=== PATIENT | male | born 1955 | race Caucasian/White ===

== ENCOUNTER 2020-03-13 07:01 | Outpatient (NON) | payer MEDICARE, SELFPAY ==
[2020-03-13 19:17] LABS: SARS-CoV-2 RNA PCR Negative
== END 2020-03-13 07:02 ==
PROVIDERS: PCP Family Medicine; Visit Provider Physician Assistant
DX: R09.81 Nasal congestion (principal); Z20.822 Contact with and (suspected) exposure to COVID-19
CPT/HCPCS: C9803; U0003; U0005

== ENCOUNTER → 2020-05-05 08:14 | Outpatient (CLI) | payer MEDICARE, SELFPAY ==
--- NOTE | ~2020-05-05 | CT_ITS ---
EXAMINATION: CT diagnostic chest wo con DATE: 05/05/2020 08:30 INDICATION: Screening for malignancy TECHNIQUE: Computed tomography (CT) of the chest was performed without intravenous contrast. Automate d exposure control and iterative reconstruction technique were employed. Exam dose: 327.80 mGy-cm to regina exam DLP. COMPARISON: 05/14/[address] lung cancer screening FINDINGS: There is stable mild emphysematous changes of the lungs. There is stable bilateral apical scarring and mild bilateral pleural thickening without calcification . No interval pulmonary mass lesion. Mild discoid atelectasis or scarring at the posterior right lung b ase, right lower lobe. There is old pulmonary granulomatous disease including calcified left lower lo be pulmonary granuloma and calcified left hilar and mediastinal nodes. Normal heart size. No pericardial or pleural effusion. No hilar or mediastinal mass lesion or lymphad enopathy is evident. Small sliding hiatal hernia. Normal morphology of the adrenal glands. Degenerative spurring of the thoracic and lumbar spine; no suspicious osteolytic or osteoblastic lesi ons are noted. IMPRESSION: Lung BI-RADS Category 2, benign in appearance or behavior Recommendation: LDCT screening in one year Reviewed, dictated and finalized at [facility]. Reviewed, dictated and finalized at location B.
== END ==
PROVIDERS: PCP Family Medicine; Visit Provider Family Medicine
DX: Z12.2 Encounter for screening for malignant neoplasm of respiratory organs (principal)
CPT/HCPCS: 71250

== ENCOUNTER 2022-01-19 09:23 | Outpatient (CLI) | payer MEDICARE, SELFPAY ==
[2022-01-22 14:37] LABS: PSA, Free 1.54 ng/mL; PSA, Total 10.6 ng/mL (<=4.0)
== END 2022-01-19 09:24 | disposition home or self-care (01) ==
LOC: ANHGOSHLAB 09:26
PROVIDERS: PCP Emergency Medicine; Visit Provider Emergency Medicine
DX: R97.20 Elevated prostate specific antigen [PSA] (principal)
CPT/HCPCS: 36415; 84153; 84154

== ENCOUNTER → 2022-01-25 08:02 | Outpatient (CLI) | payer MEDICARE, SELFPAY ==
--- NOTE | ~2022-01-25 | CT_ITS ---
EXAMINATION:CT lung screening DATE: 01/25/2022 08:16 INDICATION: Personal history of tobacco dependence. Current smoker with 20 pack-year history. TECHNIQUE: Computed tomography (CT) of the chest was performed without intravenous contrast. Automate d exposure control and iterative reconstruction technique were employed. The dose-length product (DLP ) was 103.63 mGy-cm. COMPARISON: Chest CT 05/05/2020 FINDINGS: There is mild emphysema. There is chronic scarring at the lung apices. There is minimal ate lectasis in the inferior lungs. There is a 2 mm nodule in right middle lobe. A calcified left lung no dule and calcified left hilar and mediastinal lymph nodes are consistent with old granulomatous disea se. No pleural effusion. The heart size is normal. There are coronary artery calcifications. No peric ardial effusion. Partially visualized is a 2.8 cm cyst in right kidney. There is severe thoracic spon dylosis. There is chronic mild anterior wedging of multiple midthoracic vertebral bodies. IMPRESSION: 1. Lung-RADS category 2: Benign appearance or behavior. Continue annual screening with noncontrast lo w-dose chest CT in 12 months. Reviewed, dictated and finalized at location A. ENDOSCOPY IMPRESSION: 1. Lung-RADS category 2: Benign appearance or behavior. Continue annual screeni ng with noncontrast low-dose chest CT in 12 months.
== END ==
PROVIDERS: PCP Emergency Medicine; Visit Provider Emergency Medicine
DX: Z12.2 Encounter for screening for malignant neoplasm of respiratory organs (principal); Z87.891 Personal history of nicotine dependence
CPT/HCPCS: 71271

== ENCOUNTER 2022-03-14 06:23 | Day surgery (SDC) | payer MEDICARE, SELFPAY ==
[2022-01-14 14:57] VITALS: BMI 23.7
[2022-03-04 10:51] VITALS: BMI 24.9
--- NOTE | 2022-03-14 07:04 | P.PNAN_ITS ---
Anes - Initial Pre Proc Eval Procedure: Operation Date: 03/14/22 08:00 Proposed Procedures p Screening Colonoscopy - Preston Silver MD Date/Time: 03/14/22 07:04 Surgeon: Preston Silver MD Pre Op Diagnosis: Neoplasm screening Patient Data Age: 67 Gender: M Height: 1.91 m Weight: 87.7 kg Allergies Allergy/AdvReac Type Severity Reaction Status Date / Time Penicillins Allergy Mild RASH Verified 03/14/22 06:50 Home Medications Medication Instructions Recorded Confirmed Type sodium,potassium,mag sulfates 17.5 See Rx Instructions PO .COMPLEX 01/14/22 03/14/22 Rx gram-3.13 gram-1.6 gram oral soln #354 mL (Suprep Bowel Prep Kit) sildenafil 25 mg tablet 25 mg PO PRN PRN Erectile 03/04/22 03/14/22 History Dysfunction Patient hx anesthesia problems: none Family hx anesthesia problems: none Results Review: All pre-operative results and documents have been reviewed as part of the pre- operative evaluation. [facility] Family History Family History Mother Family history of osteoarthritis Social History Social History (Updated 03/14/22 @ 07:39 by Maurilio Zamarripa DO) Smoking status: Current some day smoker Tobacco type: cigarettes Additional smoking assessment comments: 0.5 PPD x 50 years Alcohol intake: current Alcohol use details: 1-2 drinks/day Substance use: never Substance use type: does not use Living arrangements: with family Spiritual care concerns: No Anes - Eval Final PreProcedure Day of Procedure 03/14/22 07:04 Patient weight: normal Heart: regular rate and rhythm Lungs: clear to auscultation and normal air movement Airway: Mallampati scale class II Neurological: alert and oriented Last oral intake: >/= 8 hours ASA classification: III Emergent: no Anesthetic plan: proceed Anesthesia type and monitoring: general GIVS and standard monitoring Results Review: All pre-operative results and documents have been reviewed as part of the pre- operative evaluation. Informed Consent: The patient's anesthetic plan and its attendant risks and benefits were discussed with the patient/family/POA. Questions were solicited and answers provided to the satisfaction of the patient/family/POA.
[2022-03-14] MEDS: LACTATED RINGERS 1,000 ML 150 ML IV CONT (07:17)
[2022-03-14 07:18] VITALS: BP 136/83; PULSE 74; RESP 18; TEMP 37.1; O2SAT 99
--- NOTE | 2022-03-14 07:30 | PM.HPGS ---
History of Present Illness History of Present Illness Consent: Risks, benefits, and alternatives have been discussed and questions answered. Patient agrees to proceed with procedure. Chief complaint: Neoplasm screening Narrative: Victor Hugo Whitaker is a 67 year old male Presents for screening colonoscopy. Patient's current weight appetite and bowel movements are normal. Patient denies abdominal pain. Patient has had no bleeding. Family history noncontributory. Currently undergoing workup for elevated PSA. Review of Systems Review of Systems: Review of systems noncontributory. [facility] Family History Family History Mother Family history of osteoarthritis Social History Social History Smoking status: Current some day smoker Tobacco type: cigarettes Alcohol intake: current Substance use: never Substance use type: does not use Living arrangements: with family Spiritual care concerns: No Meds Home Medications and Allergies Home Medications Medication Instructions Recorded Confirmed Type sodium,potassium,mag sulfates 17.5 See Rx Instructions PO .COMPLEX 01/14/22 03/14/22 Rx gram-3.13 gram-1.6 gram oral soln #354 mL (Suprep Bowel Prep Kit) sildenafil 25 mg tablet 25 mg PO PRN PRN Erectile 03/04/22 03/14/22 History Dysfunction Allergies Allergy/AdvReac Type Severity Reaction Status Date / Time Penicillins Allergy Mild RASH Verified 03/14/22 06:50 Vital Signs Vital Signs - 24 hr 03/14/22 07:18 Temperature 98.7 F Pulse Rate 74 Respiratory Rate 18 Blood Pressure 136/83 Pulse Oximetry 99 Oxygen Delivery Room Air Exam Narrative: Physical exam reveals patient to be alert. Vital signs stable. HEENT exam is unremarkable. Patient is anicteric. Lungs are clear to auscultation and percussion. Heart is without murmur or extra sounds. Abdomen bowel sounds are present soft nontender with no organomegaly. Digital external rectal exam is normal. Assessment and Plan Assessment and plan (1) Encounter for screening colonoscopy: Code(s): Z12.11 - Encounter for screening for malignant neoplasm of colon Status: Acute Assessment and Plan: Patient presents for screening colonoscopy. He appears to be at average risk for colon polyps. Further recommendations may be given after endoscopy.
[2022-03-14 08:25] VITALS: BP 113/72; PULSE 78; RESP 18; O2SAT 100
[2022-03-14 08:35] VITALS: BP 101/73; PULSE 72; RESP 18; O2SAT 100
[2022-03-14 08:45] VITALS: BP 120/83; PULSE 71; RESP 17; O2SAT 99
--- NOTE | 2022-03-14 09:41 | WPDANESPN ---
Anes - Prog Note Post-Op Date/Time: 03/14/22 09:41 Cardiovascular status: normal Respiratory status: normal Airway patency: baseline Mental status: baseline Post-Op hydration status: normal Vital Signs: Last Vital Signs Temp 37.1 C 03/14/22 07:18 Pulse 71 03/14/22 08:45 Resp 17 03/14/22 08:45 BP 120/83 03/14/22 08:45 Pulse Ox 99 03/14/22 08:45 O2 Del Method Room Air 03/14/22 08:45 Pain Score (VAS): 0 I/O: Intake & Output 03/13/22 03/14/22 03/14/22 23:59 07:59 15:59 Intake Total 300 Balance 300 Post-procedural complaints: none Patient Feedback: Patient satisfied with anesthetic care. Other Findings: Patient vital signs back to baseline. Patient denies nausea and vomiting. Patient's pain under control. Patient OK for discharge.
== END 2022-03-14 09:03 | disposition home or self-care (01) ==
PROVIDERS: PCP Emergency Medicine; Visit Provider Internal Medicine Gastroenterology
PROC: 0DJD8ZZ Inspection of Lower Intestinal Tract, Via Natural or Artificial Opening Endoscopic (ICD-10-PCS; CPT 45378; principal; 2022-03-14 08:00)
DX: Z12.11 Encounter for screening for malignant neoplasm of colon (principal)
CPT/HCPCS: 45385

== ENCOUNTER 2022-03-14 08:09 | Outpatient (NON) | payer MEDICARE, SELFPAY | END 2022-03-14 08:10 | disposition home or self-care (01) | LOC: ANHLAB 03-15 08:11 | PROVIDERS: PCP Emergency Medicine; Visit Provider Internal Medicine Gastroenterology | DX: Z12.11 Encounter for screening for malignant neoplasm of colon (principal) | CPT/HCPCS: 88305 ==

== ENCOUNTER 2022-04-19 08:01 | Outpatient (CLI) | payer MEDICARE, SELFPAY ==
--- NOTE | ~2022-04-19 | NM_ITS ---
EXAMINATION: NM bone scan whole body DATE: 04/19/2022 11:51 INDICATION: Malignant neoplasm of the prostate TECHNIQUE: 85.7 mCi Tc-99m HDP was administered intravenously. Delayed whole-body scintigrams were o btained. COMPARISON: Chest CT studies dated 01/25/2022 and 08/31/2016 FINDINGS: Typical pattern of mild likely degenerative joint centered uptake at the right knee, bilateral acromi oclavicular, sternoclavicular and elbow joints and at the right hand and left midfoot. There is a sma ll focus of mild increased uptake at the left side of the T10 vertebral body corresponding to a new s mall sclerotic lesion on CT suspicious for metastatic disease. Additional small focus of suspicious m ild increased uptake projecting over the central sacrum. Slightly heterogeneous pattern of uptake britney ng the ribs but without evident corresponding lytic or blastic lesions on CT. Typical location for li lula degenerative mild to moderate increased uptake bilaterally at the lower cervical facet joints an d at the left side of L5 along the L4-L5 disc space although no other imaging of this region is avail able for comparison. IMPRESSION: 1. Suspicious foci of increased uptake at the T10 vertebral body and at the central sacrum, the forme r with corresponding sclerotic lesion on prior CT suspicious for metastatic disease. Reviewed, dictated and finalized at location A. [employer] IMPRESSION: 1. Suspicious foci of increased uptake at the T10 vertebral body and at the joe tral sacrum, the former with corresponding sclerotic lesion on prior CT suspici ous for metastatic disease.
== END 2022-04-19 08:02 | disposition home or self-care (01) ==
PROVIDERS: PCP Emergency Medicine; Visit Provider Urology
DX: C61 Malignant neoplasm of prostate (principal)
CPT/HCPCS: 78306; A9503

== ENCOUNTER 2022-05-04 12:43 | Outpatient (CLI) | payer MEDICARE, SELFPAY ==
--- NOTE | ~2022-05-04 | PE_ITS ---
EXAMINATION: PET_PETPSMAST_PT DATE: 05/04/2022 15:32 INDICATION: Malignant neoplasm of the prostate TECHNIQUE: 8.993 mCi of pipflufolastat F-18 (18-F-DCFPyL) was administered i.v. Low dose computed to mography (CT) images were acquired from the base of the brain to the base of the brain to the proxima l thighs for attenuation correction and anatomic localization. Positron emission tomography (PET) nicol ges were acquired in the same distribution beginning minutes after injection. Images including fused PET/CT images were reconstructed in axial, coronal, and sagittal planes. Automated exposure control t [employer] was employed. The dose-length product was 709.52mGy-cm. COMPARISON: None FINDINGS: Head/neck: Typical pattern of symmetric physiologic increased activity in the lacrimal, parotid and submandibula r glands as well as along the mucosa of the nasal and oral cavities, the tete-, naso- and hypopharynx, the glottis and esophagus. No pathologically enlarged cervical lymphadenopathy or suspicious foci of increased soft tissue uptake in the visualized head or neck. Chest: Mild emphysema with biapical pleural-parenchymal scarring. Calcified left lower lobe nodule calcified left hilar and mediastinal lymph nodes consistent with old granulomatous disease. No suspicious pulm onary nodules, pneumonia, pulmonary edema or pleural effusion. Heart size is normal. Small amount of atherosclerotic coronary artery calcific lesion. No pericardial effusion. Ectatic ascending thoracic aorta measuring up to 4.1 cm in maximal diameter. No pathologically enlarged or PSMA avid thoracic ly mphadenopathy. Abdomen/pelvis/proximal thighs: Physiologic renal accumulation and excretion of activity in the kidneys, bladder and along portions o f ureters. Photopenic low-attenuation 4.8 cm cyst at the upper pole of the right kidney. Normal degre e and slightly heterogenous pattern of increased uptake throughout the liver and spleen without radio logic correlate or dominant PSMA avid lesion. The gallbladder, pancreas and bilateral adrenal glands are normal. Moderate uptake scattered throughout the bowels with typical duodenal and proximal jejuna l predominance and without radiologic correlate, also likely physiologic. There is an approximately 2 cm region of prominent increased PSMA neck activity with maximal severe 24.9 cm in the left peripher al zone of the prostate without discernible radiologic correlate but concerning for reported primary prostate cancer. No other abnormal foci of increased soft tissue uptake or pathologically enlarged ly mphadenopathy in the abdomen, pelvis or proximal thighs. Musculoskeletal: There are approximately 35-40 scattered foci of increased bone uptake, the majority with correspondin g sclerotic bone lesions consistent with metastatic prostate cancer. These include the lesions is not ed on prior bone scan at S4 with maximal SUV of 124 and at T10 with maximal SUV of 34.9. L5 spondylol ysis with bilateral pars intra-articular is defects and grade 1 anterolisthesis on S1. IMPRESSION: 1. Focus of prominent increased uptake at the left peripheral zone of the prostate consistent with pr ovided history of prostate cancer. 2. 35-40 scattered likely metastatic bone lesions scattered throughout the axial and appendicular ske leton with prominent increased uptake in many with associated sclerosis. No evident nonosseous metast atic disease. Reviewed, dictated and finalized at location A. IMPRESSION: 1. Focus of prominent increased uptake at the left peripheral zone of the prost ate consistent with provided history of prostate cancer. 2. 35-40 scattered likely metastatic bone lesions scattered throughout the axia l and appendicular skeleton with prominent increased uptake in ma
== END 2022-05-04 12:44 | disposition home or self-care (01) ==
PROVIDERS: PCP Emergency Medicine; Visit Provider Urology
DX: C61 Malignant neoplasm of prostate (principal)
CPT/HCPCS: 78815; A9595

== ENCOUNTER 2022-08-04 10:23 | Outpatient (CLI) | payer MEDICARE, SELFPAY ==
--- NOTE | ~2022-08-04 | MR_ITS ---
EXAMINATION: MR pelvis wo/w con DATE: 08/04/2022 12:11 INDICATION: Prostate cancer TECHNIQUE: Magnetic resonance imaging (MRI) of the pelvis was performed without intravenous contrast. [place] sequences of the pelvis included axial and coronal T2-weighted SS FSE, axial, sagittal and coronal 2D FIESTA, axial 2D FIESTA FS, axial SSFSE-IR LISA, axial dual-echo T1-weighted FSPGR, axial and coronal T1 weighted LAVA, 3D axial T2 Cube, axial diffusion-weighted SE with apparent diffusion c oefficient (ADC) maps. Postcontrast sequences included a time course axial T1-weighted LAVA and sagit regina and coronal T1-weighted LAVA. COMPARISON: PET/CT dated 05/04/2022 FINDINGS: 1.5 x 1.2 cm region of asymmetric increased enhancement at the left posterior margin of the prostate appears to extend into the seminal vesicle which corresponds in location to the region of increased a ctivity on prior the SMA pad consistent with likely direct extraprostatic extension of known prostate cancer. There are enhancing bone lesions at S4 and more subtly at the left innominate bone correspon ding to foci of increased PSMA activity on prior PET/CT consistent with osseous metastatic disease. T here are a few additional bone lesions evident on prior PET with corresponding focal loss of T1 fat s ignal on the axial T2 KUB and coronal LAVA sequences which remain indiscernible on the post contrast imaging. This includes at the left side of L5 with additional lesions in the right innominate bone an d in the sacrum. Osteoarthritis related degenerative subarticular cystic change at the anterosuperior right acetabulum which was without abnormally increased activity on prior PET study. There are few a dditional small lesions in the pelvis and thoracolumbar spine which are not clearly discernible on th e MR imaging. Bladder is normal. No pathologically enlarged pelvic or inguinal lymphadenopathy. IMPRESSION: 1. 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 2. Several bone lesions in the pelvis corresponding to foci of increased PSMA activity on prior PET/C T consistent with osseous metastatic disease. Reviewed, dictated and finalized at location A. IMPRESSION: 1. 1.5 x 1.2 cm asymmetric region of enhancement on the left posterior margin o f the prostate with corresponding increased activity on prior PSMA PET consiste nt with an extra prostatic invasion of the left seminal vesicle from a known pr ostate cancer. 2. Several bone lesions in the pelvis corresponding to foci of increased PSMA a ctivity on prior PET/CT consistent with osseous metastatic disease.
== END 2022-08-04 10:24 | disposition home or self-care (01) ==
PROVIDERS: PCP Emergency Medicine; Visit Provider Radiology Radiation Oncology
DX: C61 Malignant neoplasm of prostate (principal)
CPT/HCPCS: 72197; A9577

== ENCOUNTER 2022-10-06 10:03 | Outpatient (CLI) | payer MEDICARE, SELFPAY ==
[2022-10-06 17:10] LABS: Basophils Absolute Auto 0.1 K/mm3 (0.0-0.1); Basophils Percent Auto 1.1 % (0.2-1.2); Eosinophils Absolute Auto 0.2 K/mm3 (0-0.3); Eosinophils Percent Auto 2.3 % (0-4.4); Hematocrit 44.8 % (42.0-52.0); Hemoglobin 15.3 g/dL (14.0-18.0); Immature Granulocyte Absolute 0.01 K/mm3 (0.00-0.031); Immature Granulocyte Percent A 0.2 % (0-0.5); Lymphocytes Absolute Auto 2.86 K/mm3 (0.9-3.2); Lymphocytes Percent Auto 44.1 % (18.3-44.2); Mean Corpuscular HGB Conc 34.2 g/dl (32-36); Mean Corpuscular Hemoglobin 33.8 pg (26-34); Mean Corpuscular Volume 98.9 fl (80-100); Mean Platelet Volume 9.2 fl (7.4-10.4); Monocytes Absolute Auto 0.6 K/mm3 (0.1-0.6); Monocytes Percent Auto 9.9 % (2.6-8.5); Neutrophils Absolute Auto 2.8 K/mm3 (1.3-6.7); Neutrophils Percent Auto 42.4 % (45.5-73.1); Platelet Count Result 235 k/mm3 (150-375); Red Blood Count 4.53 M/mm3 (4.6-6.20); Red Cell Distribution Width 12.9 % (11.5-14.5); White Blood Count 6.5 K/mm3 (4.5-10.0)
[2022-10-06 17:14] LABS: Alanine Aminotransferase 21 U/L (6-50); Albumin Level 3.9 g/dL (3.5-5.1); Alkaline Phosphatase 47 U/L (38-126); Anion Gap 0 mmol/L (8-16); Aspartate Amino Transferase 35 U/L (17-59); Bilirubin,Total 0.9 mg/dL (0.2-1.3); Blood Urea Nitrogen 17 mg/dL (9-20); Calcium 9.1 mg/dL (8.4-10.2); Carbon Dioxide 31 mmol/L (22-30); Chloride 103 mmol/L (98-107); Cholesterol 223 mg/dL (0-200); Estimated Glomerular Filt Rate > 60; Glucose 102 mg/dL (65-110); HDL Direct 84 mg/dL; Potassium 4.5 mmol/L (3.4-5.0); Sodium 134 mmol/L (137-145); Triglycerides 63 mg/dL (<150)
[2022-10-06 17:25] LABS: LDL Cholesterol Direct 104 mg/dL
[2022-10-06 20:05] LABS: Hemoglobin A1C 5.3 % (<5.7)
== END 2022-10-06 10:04 | disposition home or self-care (01) ==
PROVIDERS: PCP Emergency Medicine; Visit Provider Emergency Medicine
DX: Z91.89 Other specified personal risk factors, not elsewhere classified (principal); C61 Malignant neoplasm of prostate
CPT/HCPCS: 36415; 80053; 80061; 83036; 85025

== ENCOUNTER 2022-10-06 13:45 | Outpatient (CLI) | payer MEDICARE, SELFPAY ==
--- NOTE | ~2022-10-06 | PE_ITS ---
EXAMINATION: PET_PETPSMAST_PT DATE: 10/06/2022 16:03 INDICATION: Prostate cancer TECHNIQUE: 8.62 mCi of pipflufolastat F-18 (18-F-DCFPyL) was administered i.v. Low dose computed amanda ography (CT) images were acquired from the base of the brain to the base of the brain to the proximal thighs for attenuation correction and anatomic localization. Positron emission tomography (PET) imag es were acquired in the same distribution beginning 101 minutes after injection. Images including fus ed PET/CT images were reconstructed in axial, coronal, and sagittal planes. Automated exposure contro l technique was employed. The dose-length product was 636.42mGy-cm. COMPARISON: 05/04/2022 FINDINGS: Head/neck: Typical pattern of symmetric physiologic increased activity in the lacrimal, parotid and submandibula r glands as well as along the mucosa of the nasal and oral cavities, the tete-, naso- and hypopharynx, the glottis and esophagus. No pathologically enlarged cervical lymphadenopathy or suspicious foci of increased uptake in the soft tissues of the visualized head or neck. Chest: Mild emphysema with stable appearance of biapical pleural-parenchymal scarring. Calcified left lower lobe nodule and calcified left hilar and mediastinal lymph nodes consistent with old granulomatous di sease. No suspicious pulmonary nodules, pneumonia or pleural effusion. Heart size is normal. No peric ardial effusion. Unchanged ectatic ascending thoracic aorta measuring up to 4.1 cm. No pathologically enlarged or PSMA avid thoracic lymphadenopathy. Abdomen/pelvis/proximal thighs: Physiologic renal accumulation and excretion of activity in the kidneys, bladder and along portions o f ureters. Again seen is a photopenic defect associated with a 4.9 cm right renal cyst. Normal degree and slightly heterogenous pattern of increased uptake throughout the liver and spleen without radiol ogic correlate or dominant PSMA avid lesion. The gallbladder, pancreas and bilateral adrenal glands a re normal. Moderate uptake scattered throughout the bowels with typical duodenal and proximal jejunal predominance and without radiologic correlate, also likely physiologic. The previously seen intense focus of uptake at the left side of the prostate has resolved consistent with response to treatment. No other abnormal foci of increased soft tissue uptake or pathologically enlarged lymphadenopathy in the abdomen, pelvis or proximal thighs. Musculoskeletal: Significant decrease in the degree of uptake associated with the numerous previously noted PSMA avid bone lesions, many of which are now indiscernible. For reference there is a 7 mm sclerotic lesion wit hout evident PSMA activity at the left glenoid where previously there was a lesion with maximal SUV o f 25.1 which was indiscernible on CT. No significant change in size of a 12 mm now more densely scler otic lesion in the T10 vertebral body with decrease in activity with maximal SUV of 4.6, previously 3 4.9. The most intense residual uptake is seen at a 12 mm sclerotic lesion at the S4 vertebral body wh ich is unchanged in size but with increasing sclerosis to prior study. The maximal SUV has decreased from 124 to 16.7. IMPRESSION: 1. Significant decrease in uptake associated with the previously noted lesion in the left prostate an d all of the previously noted bone lesions, many of which are now essentially indiscernible on PET bu t with increasing sclerosis consistent with response to treatment. No new or more intensely PSMA avid lesions identified. Reviewed, dictated and finalized at location A. IMPRESSION: 1. Significant decrease in uptake associated with the previously noted lesion i n the left prostate and all of the previously noted bone lesions, many of which are now essentially indiscernible
== END 2022-10-06 13:46 | disposition home or self-care (01) ==
PROVIDERS: PCP Emergency Medicine; Visit Provider Urology
DX: C61 Malignant neoplasm of prostate (principal)
CPT/HCPCS: 36415; 78815; 80053; 80061; 83036; 85025; A9595

== ENCOUNTER 2022-11-18 13:07 | Outpatient (CLI) | payer MEDICARE, SELFPAY ==
--- NOTE | ~2022-11-18 | DEXA_ITS ---
Bone Density Report Name: MONICA CORTES Age: 67 Sex: Male Ethnicity: White Date of : 1955 Indication: prior fracture; cancer; Referring Provider: CHAVEZ KIM Study: Bone densitometry was performed. Exam Date: November 18, 2022 Accession number: [id number] Bone Density: Region BMD T-score Z-score Classification AP Spine(L1, L2, L3) 1.329 2.4 3.2 Normal Femoral Neck (Left) 0.907 -0.2 0.9 Normal Total Hip (Left) 1.168 0.9 1.5 Normal Femoral Neck (Right) 0.870 -0.4 0.7 Normal Total Hip (Right) 1.128 0.6 1.2 Normal Total Hip Mean 1.148 0.8 1.4 Normal World Health Organization criteria for BMD impression classify patients as: Normal (T-score at or above -1.0), Osteopenia (T-score between -1.0 and -2.5), or Osteoporosis (T-score at or below -2.5). 10-year Fracture Risk: FRAX not reported because: All T-scores for Spine Total, Hip Total, Femoral Neck at or above -1.0 Clinical Information Provided by Patient: Has had a low trauma fracture Smokes Has the following medical conditions: Cancer Patient maximum height was 76 Drinks caffeinated beverages Impression: The patient has normal bone mass. The patient has risk factors, including: smoking, previous fracture. Discussion: BONE DENSITY IS ABOVE THE MINIMUM DESIRABLE LEVEL AT ALL SKELETAL SITES TESTED. This patient?s bone mineral density is above the minimum desirable level (T-score -1.0 or better) at all sites measured. The patient should follow a healthful lifestyle (good nutrition with adequate calcium and vitamin D, and appropriate weight-bearing exercise). Follow-Up: Consider repeating this study in 5 years or sooner if there is some new clinical indication. Reported by: [facility] on 11/18/2022 1:39:00 PM. Reviewed, dictated and finalized at location A. [facility]
== END 2022-11-18 13:08 | disposition home or self-care (01) ==
LOC: ANHIMG 13:09
PROVIDERS: PCP Emergency Medicine; Visit Provider Urology
DX: M81.0 Age-related osteoporosis without current pathological fracture (principal); C61 Malignant neoplasm of prostate
CPT/HCPCS: 77080

== ENCOUNTER 2023-04-26 14:15 | Outpatient (CLI) | payer MEDICARE, SELFPAY ==
[2023-04-26 19:49] LABS: Prostate Specific Antigen < 0.1 ng/mL (< OR = 4.0)
[2023-05-01 18:06] LABS: Testosterone Total 12 ng/dL (250-1100)
== END 2023-04-26 14:16 | disposition home or self-care (01) ==
LOC: ANHGOSHLAB 14:18
PROVIDERS: PCP Emergency Medicine
DX: C61 Malignant neoplasm of prostate (principal)
CPT/HCPCS: 36415; 84153; 84403

== ENCOUNTER 2023-08-23 09:07 | Outpatient (CLI) | payer MEDICARE, SELFPAY ==
[2023-08-23 14:07] LABS: Prostate Specific Antigen < 0.1 ng/mL (< OR = 4.0)
== END 2023-08-23 09:08 | disposition home or self-care (01) ==
PROVIDERS: PCP Emergency Medicine; Visit Provider Urology
DX: C61 Malignant neoplasm of prostate (principal)
CPT/HCPCS: 36415; 84153

== ENCOUNTER 2023-12-13 13:47 | Outpatient (CLI) | payer MEDICARE, SELFPAY ==
--- NOTE | ~2023-12-13 | CT_ITS ---
CT Scan of the Chest without Contrast: Clinical Indication: Lung cancer screening, nicotine dependence Technique: Contiguous sections were acquired throughout the chest without intravenous contrast. Dose reduction technique was used on this scan by utilizing automated exposure control and iterative recon struction technique. The dose-length product (DLP) was 101.76 mGy-cm. COMPARISON: 01/25/2022 Findings: There is no evidence of any significant mediastinal, hilar or axillary lymphadenopathy. The mediastin al soft tissues appear normal. There is no evidence of pleural or pericardial effusion. Stable biapical scarring. No new or enlarging pulmonary nodule seen otherwise. Calcified left basilar granuloma noted. Images through the upper abdomen reveal no significant abnormalities. Stable degenerative spondylosis of the thoracic spine. Impression: No lung RADS 2: Benign appearance. 12 month follow-up screening CT advised. Reviewed, dictated and finalized at [facility]. Impression: No lung RADS 2: Benign appearance. 12 month follow-up screening CT advised.
--- NOTE | ~2023-12-13 | US_ITS ---
EXAMINATION: US aorta [facility] DATE: 12/13/2023 14:32 INDICATION: Abdominal aortic aneurysm screening with risk factor of smoking TECHNIQUE: Grayscale, color Doppler, and pulsed Doppler images of the aorta and common iliac arteries were obtained. COMPARISON: None. FINDINGS: The proximal aorta measures 2.3 cm in AP diameter. The mid aorta measures 2.2 cm. The distal aorta me asures 1.8 cm. The right common iliac artery measures 1.3 cm. The left common iliac artery measures 1 .2 cm. IMPRESSION: 1. Normal abdominal aorta. Reviewed, dictated and finalized at location A. IMPRESSION: 1. Normal abdominal aorta.
== END 2023-12-13 13:48 | disposition home or self-care (01) ==
PROVIDERS: PCP Family Medicine; Visit Provider Emergency Medicine
DX: Z12.2 Encounter for screening for malignant neoplasm of respiratory organs (principal); Z87.891 Personal history of nicotine dependence
CPT/HCPCS: 71271; 76706

== ENCOUNTER 2024-01-04 11:11 | Outpatient (CLI) | payer MEDICARE, SELFPAY ==
[2024-01-04 18:42] LABS: Basophils Absolute Auto 0.1 K/mm3 (0.0-0.1); Basophils Percent Auto 1.4 % (0.2-1.2); Eosinophils Absolute Auto 0.2 K/mm3 (0-0.3); Eosinophils Percent Auto 3.1 % (0-4.4); Hematocrit 42.3 % (42.0-52.0); Hemoglobin 14.1 g/dL (14.0-18.0); Immature Granulocyte Absolute 0.02 K/mm3 (0.00-0.031); Immature Granulocyte Percent A 0.4 % (0-0.5); Lymphocytes Absolute Auto 1.14 K/mm3 (0.9-3.2); Lymphocytes Percent Auto 23.2 % (18.3-44.2); Mean Corpuscular HGB Conc 33.3 g/dl (32-36); Mean Corpuscular Hemoglobin 34.3 pg (26-34); Mean Corpuscular Volume 102.9 fl (80-100); Mean Platelet Volume 8.9 fl (7.4-10.4); Monocytes Absolute Auto 0.6 K/mm3 (0.1-0.6); Monocytes Percent Auto 11.4 % (2.6-8.5); Neutrophils Percent Auto 60.5 % (45.5-73.1); Platelet Count Result 241 k/mm3 (150-375); Red Blood Count 4.11 M/mm3 (4.6-6.20); Red Cell Distribution Width 13.7 % (11.5-14.5); White Blood Count 4.9 K/mm3 (4.5-10.0)
[2024-01-04 18:54] LABS: Alanine Aminotransferase 16 U/L (6-50); Alkaline Phosphatase 56 U/L (38-126); Anion Gap 2 mmol/L (4-12); Aspartate Amino Transferase 71 U/L (17-59); Bilirubin,Total 0.9 mg/dL (0.2-1.3); Blood Urea Nitrogen 17 mg/dL (9-20); Calcium 9.2 mg/dL (8.4-10.2); Carbon Dioxide 29 mmol/L (22-30); Chloride 104 mmol/L (98-107); Estimated Glomerular Filt Rate > 60; Glucose 97 mg/dL (65-110); Potassium 4.6 mmol/L (3.4-5.0); Sodium 135 mmol/L (137-145)
== END 2024-01-04 11:12 | disposition home or self-care (01) ==
LOC: ANHGOSHLAB 11:13
PROVIDERS: PCP Family Medicine; Visit Provider Emergency Medicine
DX: C61 Malignant neoplasm of prostate (principal)
CPT/HCPCS: 36415; 80053; 85025

== ENCOUNTER 2024-02-01 20:08 | Emergency (ER) | payer MEDICARE, SELFPAY ==
--- NOTE | ~2024-02-01 | CT_ITS ---
EXAMINATION: CT facial & cervical spine wo DATE: 02/01/2024 21:59 INDICATION: Head injury. Fall. TECHNIQUE: Computed tomography (CT) of the maxillofacial region and cervical spine was performed with out intravenous contrast. Automated exposure control and iterative reconstruction technique were empl oyed. The dose-length product was 832.62 mGy-cm. COMPARISON: None FINDINGS: MAXILLOFACIAL CT: There is left cheek soft tissue swelling. There is leftward deviation of the nasal septum. No fractur e. There is mucosal thickening in the paranasal sinuses. CERVICAL SPINE CT: There is mild scarring at the lung apices. There is mild emphysema. Bone alignment is normal. Vertebr al body heights are normal. There is mildly decreased disc height at C4-C5 and severely decreased dis c height at C5-C6 and C6-C7. The following disc levels are specifically discussed: C2-C3: There is no uncovertebral joint osteoarthritis. There is mild right and severe left facet join t osteoarthritis. There is no neural foraminal stenosis. There is no central canal stenosis. C3-C4: There is moderate right and mild left uncovertebral joint osteoarthritis. There is severe bila teral facet joint osteoarthritis. There is moderate right and mild left neural foraminal stenosis. Th ere is mild central canal stenosis. C4-C5: There is mild bilateral uncovertebral joint osteoarthritis. There is severe right and mild lef t facet joint osteoarthritis. There is mild right neural foraminal stenosis. There is no central elisha l stenosis. C5-C6: There is severe bilateral uncovertebral joint osteoarthritis. There is moderate bilateral face t joint osteoarthritis. There is mild right and moderate left neural foraminal stenosis. There is mil d central canal stenosis. C6-C7: There is severe right and mild left uncovertebral joint osteoarthritis. There is severe bilate ral facet joint osteoarthritis. There is moderate right and mild left neural foraminal stenosis. Ther e is mild central canal stenosis. C7-T1: There is no uncovertebral joint osteoarthritis. There is severe bilateral facet joint osteoart hritis. There is mild bilateral neural foraminal stenosis. There is no central canal stenosis. IMPRESSION: 1. No fracture. 2. Severe cervical spondylosis. Reviewed, dictated and finalized at location A. [employer]
--- NOTE | ~2024-02-01 | CT_ITS ---
[facility] DATE: 02/01/2024 22:07 INDICATION: Fall down steps. TECHNIQUE: Computed tomography (CT) of the chest, abdomen, pelvis, thoracic spine, and lumbar spine w as performed with 100 mL Omnipaque 350 intravenous contrast. Automated exposure control and iterative reconstruction technique were employed. The dose-length product was 1062.07 mGy-cm. COMPARISON: None FINDINGS: CT CHEST: There is mild emphysema. There is mild scarring at the lung apices. There is mild scarring in paraspinal right lower lobe. There is mild atelectasis in the right. A calcified left lung nodule and calcified left hilar lymph nodes are consistent with old granulomatous disease. No pleural effusi on. The heart size is normal. There are coronary artery calcifications. No pericardial effusion. CT ABDOMEN AND PELVIS: The liver, spleen, gallbladder, pancreas, adrenal glands, and left kidney are normal. There is a 4.9 cm cyst in right kidney. There are brachytherapy seeds in the prostate. There are no dilated loops of bowel. There are no pathologically enlarged lymph nodes. There is no free int raperitoneal fluid. CT THORACIC SPINE: Alignment is normal. There is mild chronic anterior wedging of T5-L1 vertebral bod ies. There is mild to moderately decreased disc height at many levels in thoracic spine. There is a h emangioma in T10 vertebral body. There is multilevel mild facet joint osteoarthritis. There is mild n eural foraminal stenosis at a few levels. No central canal stenosis. CT LUMBAR SPINE: There are chronic bilateral L5 pars defects. There is a 10 mm anterolisthesis of L5 on S1. There is mild chronic anterior wedging of L1 vertebral body. There is mildly decreased disc he ight at L4-L5 and severely decreased disc height at L5-S1. There is mild chronic height loss of L5 ve rtebral body posteriorly. There is a hemangioma in L5 vertebral body. The following disc levels are s pecifically discussed: L1-L2: The disc does not extend beyond the endplate margin. There is mild bilateral facet joint osteo arthritis. There is no neural foraminal stenosis. There is no central canal stenosis. L2-L3: The disc is bulging. There is severe right and mild left facet joint osteoarthritis. There is mild lateral neural foraminal stenosis. There is mild central canal stenosis. L3-L4: The disc is bulging. There is mild bilateral facet joint osteoarthritis. There is mild bilater al neural foraminal stenosis. There is mild central canal stenosis. L4-L5: The disc is bulging. There is moderate bilateral facet joint osteoarthritis. There is moderate bilateral neural foraminal stenosis. There is mild central canal stenosis. L5-S1: The disc does not extend beyond the endplate margin. There is mild bilateral facet joint osteo arthritis. There is moderate bilateral neural foraminal stenosis. There is no central canal stenosis. IMPRESSION: 1. No acute posttraumatic findings. 2. Mild emphysema. 3. Moderate thoracic spondylosis and severe lower lumbar spondylosis. Reviewed, dictated and finalized at location A. [employer]
--- NOTE | ~2024-02-01 | CT_ITS ---
EXAMINATION: CT brain wo con DATE: 02/01/2024 21:58 INDICATION: Head injury. TECHNIQUE: Computed tomography (CT) of the head was performed without intravenous contrast. The mA wa s adjusted according to patient size. Iterative reconstruction technique was employed. The dose-lengt h product was 681.00 mGy-cm. COMPARISON: None FINDINGS: There is no intracranial hemorrhage, acute infarction, or abnormal intracranial mass lesion . The ventricles are normal in size. There is mild mucosal thickening in the paranasal sinuses. The orbits are normal. The mastoid air cells are normal. There is left cheek soft tissue swelling. IMPRESSION: 1. Normal brain. Reviewed, dictated and finalized at location A. NICAL PHOTOGRAPHER IMPRESSION: 1. Normal brain.
[2024-02-01 20:08] VITALS: BP 156/80; PULSE 84; RESP 18; TEMP 36.7; O2SAT 100
--- NOTE | 2024-02-01 20:10 | PC.NURSE ---
Ccollar placed on pt for spinal precautions
--- NOTE | 2024-02-01 20:48 | PC.NURSE ---
C Collar placed out in triage at this time.
--- NOTE | 2024-02-01 21:01 | PC.NURSE ---
c-collar inatact while in ER room.
[2024-02-01 21:05] LABS: Basophils Absolute Auto 0.1 K/mm3 (0.0-0.1); Eosinophils Absolute Auto 0.2 K/mm3 (0-0.3); Eosinophils Percent Auto 3.8 % (0-4.4); Hematocrit 40.7 % (42.0-52.0); Hemoglobin 14.3 g/dL (14.0-18.0); Immature Granulocyte Absolute 0.03 K/mm3 (0.00-0.031); Immature Granulocyte Percent A 0.5 % (0-0.5); Lymphocytes Absolute Auto 1.39 K/mm3 (0.9-3.2); Lymphocytes Percent Auto 23.2 % (18.3-44.2); Mean Corpuscular HGB Conc 35.1 g/dl (32-36); Mean Corpuscular Hemoglobin 35.3 pg (26-34); Mean Corpuscular Volume 100.5 fl (80-100); Mean Platelet Volume 8.5 fl (7.4-10.4); Monocytes Absolute Auto 0.6 K/mm3 (0.1-0.6); Monocytes Percent Auto 10.7 % (2.6-8.5); Neutrophils Absolute Auto 3.7 K/mm3 (1.3-6.7); Neutrophils Percent Auto 60.8 % (45.5-73.1); Platelet Count Result 200 k/mm3 (150-375); Red Blood Count 4.05 M/mm3 (4.6-6.20); Red Cell Distribution Width 13.4 % (11.5-14.5)
--- NOTE | 2024-02-01 21:05 | WC.ED.TRAUMA ---
HPI - Trauma General Chief Complaint: Trauma Stated Complaint: Fell down approx 6-8 steps with loc, axox4 now Time Seen by Provider: 02/01/24 20:47 Source: patient Mode of arrival: wheelchair Limitations: other (patient does not fully remember incident) History of Present Illness HPI narrative: This is a 69-year-old male that presents to the emergency department after a fall down steps. Reports he had just done the laundry. He was walking back up the steps. He is unsure what caused him to fall, but he fell down about 8 steps. He hit his head. His found him at the bottom of the steps unconscious. Patient with laceration over the left eyebrow, abrasion to the left cheek. Reporting a headache. Patient is up-to-date on tetanus vaccination. Denies any other focal complaints at this time. Related Data Home Medications ?Medication ?Instructions ?Recorded ?Confirmed ?Last Taken ?Type enzalutamide 40 mg capsule (Xtandi) 160 mg PO DAILY 10/06/22 09/28/23 Unknown History Allergies Allergy/AdvReac Type Severity Reaction Status Date / Time Penicillins Allergy Mild RASH Verified 02/01/24 20:06 Review of Systems Review of Systems: CONSTITUTIONAL: Denies fever EYES: Denies visual changes GASTROINTESTINAL: Denies vomiting MUSCULOSKELETAL: Denies back pain, joint pain, or myalgia. NEUROLOGIC: Reports headache. Denies numbness, or weakness. All systems reviewed & are unremarkable except as noted in HPI and below PMFSH Past Medical History Medical History Prostate cancer Family History Family History Mother Family history of osteoarthritis Social History Social History Smoking status: Current some day smoker Tobacco type: cigarettes Additional smoking assessment comments: 0.5 PPD x 50 years Alcohol intake: current Alcohol use details: 1-2 drinks/day Substance use: never Substance use type: does not use Living arrangements: with family Spiritual care concerns: No Exam Narrative: GENERAL: Well-appearing, well-nourished, and in no acute distress. HEAD: Normocephalic. Abrasion to the left cheek. 2cm irregular laceration into subcutaneous tissue to the left eyebrow EYES: PERRLA and EOMI. ENT: Nares clear, no rhinorrhea or epistaxis. Mucous membranes moist. Oropharynx without tonsillar hypertrophy exudate or other lesions. Bilateral TMs pearly mallory non-bulging NECK: Supple. No adenopathy or masses. C collar in place CHEST: Clear to auscultation. No respiratory distress. No wheezes rales or rhonchi HEART: Regular rate and rhythm. No murmur heard. Normal peripheral pulses. ABDOMEN: Soft, nontender, nondistended, normal active bowel sounds. BACK: No midline spinal tenderness EXTREMITIES: Normal range of motion. No edema or obvious deformity. SKIN: Warm, dry, no rash. NEURO: No focal deficits. Alert and oriented x3. CN II-XII grossly intact PSYCH: Normal mood and affect Course Course Emergency Course: Patient and family updated on workup and agree with plan of care Vital Signs Vital signs: Vital Signs Temperature 98.1 F 02/01/24 20:08 Pulse Rate 84 02/01/24 20:08 Respiratory Rate 18 02/01/24 20:08 Blood Pressure 156/80 H 02/01/24 20:08 Pulse Oximetry 100 02/01/24 20:08 Oxygen Delivery Room Air 02/01/24 20:08 Temperature 98.1 F 02/01/24 20:08 Pulse Rate 84 02/01/24 20:08 Respiratory Rate 18 02/01/24 20:08 Blood Pressure 156/80 H 02/01/24 20:08 Pulse Oximetry 100 02/01/24 20:08 Oxygen Delivery Room Air 02/01/24 20:08 Procedures Laceration Laceration 1: Date: 02/02/24 Time: 00:20 Site: face Size (cm): 2 Description: irregular Depth: simple, single layer Local Anesthetic: lidocaine 1% and with epi Amount of anesthesia used (mL): 1 Pre-repair: wound explored and irrigated ====== Skin Level ====== Skin layer closed with: nylon Size (cm): 5-0 Number of sutures: 3 Technique: simple, interrupted ====== Subcutaneous Layer ====== ====== Muscle Layer ====== ====== Tendon Layer ====== MDM - Trauma MDM Narrative Medical decision making narrative: Patient presents to the emergency department after a fall down several steps with head injury. Patient is neurologically intact. CT brain, cervical spine, facial bones without acute findings. CT chest/abdomen/pelvis/thoracic/lumbar spine without acute posttraumatic findings. Patient's wound was irrigated and closed with sutures. He is up-to-date on tetanus vaccination. Patient and family updated on workup and agree with plan of care. He is to follow up with primary provider. He was given warnings to return to the ER Differential Diagnosis Differential diagnosis: Likely abusive head trauma (Concussion, intracranial hemorrhage, cervical spine fracture), kidney laceration, fracture of face bones, splenic injury and laceration of liver Lab Data Attestation: I reviewed the patient's lab results. 02/01/24 21:00 02/01/24 21:00 Labs: Lab Results 02/01/24 Range/Units 21:00 WBC 6.0 (4.5-10.0) K/mm3 RBC 4.05 L (4.6-6.20) M/mm3 Hgb 14.3 (14.0-18.0) g/dL Hct 40.7 L (42.0-52.0) % MCV 100.5 H (80-100) fl MCH 35.3 H (26-34) pg MCHC 35.1 (32-36) g/dl RDW 13.4 (11.5-14.5) % Plt Count 200 (150-375) k/mm3 MPV 8.5 (7.4-10.4) fl Immature Gran % (Auto) 0.5 (0-0.5) % Neut % (Auto) 60.8 (45.5-73.1) % Lymph % (Auto) 23.2 (18.3-44.2) % [place] % (Auto) 10.7 H (2.6-8.5) % Eos % (Auto) 3.8 (0-4.4) % Baso % (Auto) 1.0 (0.2-1.2) % Lymph # (Auto) 1.39 (0.9-3.2) K/mm3 [place] # (Auto) 0.6 (0.1-0.6) K/mm3 Eos # (Auto) 0.2 (0-0.3) K/mm3 Baso # (Auto) 0.1 (0.0-0.1) K/mm3 Abs Immat Gran (auto) 0.03 (0.00-0.031) K/mm3 Absolute Neuts (auto) 3.7 (1.3-6.7) K/mm3 Absolute Nucleated RBC 0.000 (0.0-0.012) K/mm3 Nucleated RBC % 0.0 (0.0-0.2) % PT 12.5 (11.1-14.7) Seconds INR 0.9 APTT 26.7 (22.3-36.8) Seconds Sodium 138 (137-145) mmol/L Potassium 3.9 (3.4-5.0) mmol/L Chloride 108 H (98-107) mmol/L Carbon Dioxide 24 (22-30) mmol/L Anion Gap 6 (4-12) mmol/L BUN 21 H (9-20) mg/dL Creatinine 0.70 (0.7-1.3) mg/dL Estim Creat Clear Calc 103 ml/min Estimated GFR > 60 (59 - ) Glucose 111 H (65-110) mg/dL Calcium 8.8 (8.4-10.2) mg/dL Total Bilirubin 0.6 (0.2-1.3) mg/dL AST 30 (17-59) U/L ALT 17 (6-50) U/L Alkaline Phosphatase 58 (38-126) U/L Total Protein 7.0 (6.3-8.2) g/dL Albumin 4.2 (3.5-5.1) g/dL Imaging Data Radiologist's impression: ITS Impressions Head CT 02/01/24 21:59 IMPRESSION: 1. Normal brain. Head/Cervical Spine/Facial Bones CT 02/01/24 22:00 IMPRESSION: 1. No fracture. 2. Severe cervical spondylosis. Chest/Abdomen/Pelvis/Spine CT 02/01/24 22:08 IMPRESSION: 1. No acute posttraumatic findings. 2. Mild emphysema. 3. Moderate thoracic spondylosis and severe lower lumbar spondylosis. Critical Care Time Critical Care Time Critical Care Time: No Discharge Plan Discharge Clinical Impression: Laceration Fall down steps Qualifiers: Encounter type: initial encounter Qualified Code(s): W10.8XXA - Fall (on) (from) other stairs and steps, initial encounter Head injury Qualifiers: Encounter type: initial encounter Qualified Code(s): S09.90XA - Unspecified injury of head, initial encounter Patient Disposition: Home, Self-Care Condition: Stable Instructions: Care For Your Stitches (ED), Laceration (ED), Head Injury (ED) Additional Instructions: Return to the emergency department if you experience fever, vomiting, redness or swelling of your wound, abnormal drainage from your wound, numbness, weakness, or any other symptoms that are concerning to you. Rest as much as you can, especially the first 2 days after a head injury are the most important for the brain to rest. Ice to the area. Over the counter pain medication as needed. Apply antibiotic ointment daily. Clean with mild soap and water daily Follow-up with your primary care doctor for suture removal in 3-5 days. Patient Language: Luxembourgish Prescriptions: No Action Xtandi 40 mg capsule 160 mg PO DAILY fluorouracil 5 % cream 1 applic topical BID Qty: 40 0RF Rx Instructions: Apply to affected area until the inflammatory reaction reaches erosion stage then stop Follow-up/Referrals: Michael Lilly MD [Primary Care Provider] - 3 Days
[2024-02-01 21:17] LABS: Alanine Aminotransferase 17 U/L (6-50); Albumin Level 4.2 g/dL (3.5-5.1); Alkaline Phosphatase 58 U/L (38-126); Anion Gap 6 mmol/L (4-12); Aspartate Amino Transferase 30 U/L (17-59); Bilirubin,Total 0.6 mg/dL (0.2-1.3); Blood Urea Nitrogen 21 mg/dL (9-20); Calcium 8.8 mg/dL (8.4-10.2); Carbon Dioxide 24 mmol/L (22-30); Chloride 108 mmol/L (98-107); Estimated CRCL calculation 103 ml/min; Estimated Glomerular Filt Rate > 60; Glucose 111 mg/dL (65-110); Potassium 3.9 mmol/L (3.4-5.0); Sodium 138 mmol/L (137-145)
[2024-02-01 21:25] LABS: INR 0.9; Partial Thromboplastin Time 26.7 Seconds (22.3-36.8); Prothrombin Time 12.5 Seconds (11.1-14.7)
[2024-02-09 12:53] LABS: Glucose Point of Care 310 mg/dl (65-105)
== END 2024-02-02 01:07 | disposition home or self-care (01) ==
PROVIDERS: Emergency Provider Physician Assistant; PCP Family Medicine
DX: S01.112A Laceration without foreign body of left eyelid and periocular area, initial encounter (principal); F17.210 Nicotine dependence, cigarettes, uncomplicated; Z85.46 Personal history of malignant neoplasm of prostate; Z79.899 Other long term (current) drug therapy; J43.9 Emphysema, unspecified; M47.812 Spondylosis without myelopathy or radiculopathy, cervical region; M47.815 Spondylosis without myelopathy or radiculopathy, thoracolumbar region; W10.9XXA Fall (on) (from) unspecified stairs and steps, initial encounter
CPT/HCPCS: 12011; 36415; 70450; 70486; 71260; 72125; 72129; 72132; 74177; 80053; 82948; 85025; 85610; 85730; 99284; Q9967

== ENCOUNTER 2024-02-08 10:12 | Outpatient (CLI) | payer MEDICARE, SELFPAY ==
--- NOTE | ~2024-02-08 | XR_ITS ---
XR knee RT min 4V Ordering provider: IQRA Hicks-C History: . M25.561 - Pain in right knee . Comparison: None. FINDINGS: BONES: No acute fracture or dislocation. JOINT SPACES: Narrowing of the medial compartment. Marginal osteophytes seen in the knee and patella. SOFT TISSUES: Normal. IMPRESSION: No acute osseous abnormality right knee. Severe osteoarthritic changes. Reviewed, dictated and finalized at location A. [employer]
== END 2024-02-08 10:13 | disposition home or self-care (01) ==
LOC: GOSHIMG 10:13
PROVIDERS: PCP Orthopaedic Surgery; Visit Provider Nurse Practitioner Family
DX: M25.561 Pain in right knee (principal)
CPT/HCPCS: 73564

== ENCOUNTER 2024-02-28 10:02 | Outpatient (CLI) | payer MEDICARE, SELFPAY ==
[2024-02-28 16:41] LABS: Hepatitis B Surface Antigen Negative (Negative)
[2024-02-28 16:46] LABS: HAV RESULT Negative (Negative); Hepatitis B Core IgM Result Negative (Negative)
[2024-02-28 16:47] LABS: Alanine Aminotransferase 16 U/L (6-50); Albumin Level 4.3 g/dL (3.5-5.1); Alkaline Phosphatase 64 U/L (38-126); Anion Gap 6 mmol/L (4-12); Aspartate Amino Transferase 52 U/L (17-59); Bilirubin,Total 1.1 mg/dL (0.2-1.3); Blood Urea Nitrogen 16 mg/dL (9-20); Calcium 9.3 mg/dL (8.4-10.2); Carbon Dioxide 30 mmol/L (22-30); Chloride 102 mmol/L (98-107); Estimated Glomerular Filt Rate > 60; Glucose 99 mg/dL (65-110); Potassium 4.5 mmol/L (3.4-5.0); Sodium 138 mmol/L (137-145)
[2024-02-28 16:49] LABS: Prostate Specific Antigen < 0.1 ng/mL (< OR = 4.0)
[2024-02-28 16:58] LABS: Hepatitis C Virus Antibody Negative (Negative)
[2024-03-05 01:53] LABS: Testosterone Total 14 ng/dL (250-1100)
== END 2024-02-28 10:03 | disposition home or self-care (01) ==
LOC: ANHGOSHLAB 10:03
PROVIDERS: Nurse Practitioner Family; PCP Orthopaedic Surgery; Visit Provider Urology
DX: C61 Malignant neoplasm of prostate (principal); R74.8 Abnormal levels of other serum enzymes
CPT/HCPCS: 36415; 80053; 80074; 84153; 84403

== ENCOUNTER 2024-03-25 09:01 | Emergency (ER) | payer MEDICARE, SELFPAY ==
[2024-03-25 09:31] VITALS: BP 143/83; PULSE 76; RESP 16; TEMP 36.6; O2SAT 100
[2024-03-25 09:38] LABS: EDCOVIDSCREEN Positive (Negative)
--- NOTE | 2024-03-25 10:04 | ED.URI ---
HPI - URI/Sore Throat General Chief Complaint: Upper Respiratory Infection Stated Complaint: Upper Respiratory Symptoms Time Seen by Provider: 03/25/24 09:50 Source: patient, RN notes reviewed and old records reviewed Mode of arrival: ambulatory Limitations: no limitations History of Present Illness HPI Narrative: 69-year-old male who presents to [facility] with complaints of nasal congestion some cough some body aches and low-grade fever since Monday. tested positive for COVID last week and he is concerned that he has COVID also and wants to be tested today. Patient states has 97-year-old father that he checks in on and wants to make sure he does not have COVID. Patient denies any shortness of breath. Has some headache discomfort some nasal drainage but denies any nausea vomiting or diarrhea. Patient reports that he has taken Advil for his symptoms. MD elicited complaint: fever, cough, rhinorrhea, nasal congestion and other (headache and body aches) Pertinent past history: other (tobacco use) Onset (ago): day(s) (3) Severity: mild Able to tolerate fluids by mouth: Yes Treatments prior to arrival: ibuprofen Related Data Home Medications ?Medication ?Instructions ?Recorded ?Confirmed ?Last Taken ?Type enzalutamide 40 mg capsule (Xtandi) 160 mg PO DAILY 10/06/22 03/25/24 Unknown History Allergies Allergy/AdvReac Type Severity Reaction Status Date / Time Penicillins Allergy Mild RASH Verified 03/25/24 09:26 Review of Systems Review of Systems: CONSTITUTIONAL:Reports malaise, some chills, sweats, or fever. EYES: Denies visual changes, redness, or discharge. ENT: Reports rhinorrhea, congestion, sinus pain,no otalgia and no sore throat. CARDIOVASCULAR: Denies chest pain, palpitations, or edema. RESPIRATORY: Reports cough.? Denies dyspnea. GASTROINTESTINAL: Denies abdominal pain, nausea, vomiting, diarrhea SKIN: Denies rash or itching. MUSCULOSKELETAL:reports myalgia. NEUROLOGIC:reports headache. All systems reviewed & are unremarkable except as noted in HPI and below PMFSH Past Medical History Medical History Prostate cancer Surgical History Surgical History (Updated 03/26/24 @ 09:19 by Robyn Perez NP) History of arthroscopy of right knee medial meniscectomy Family History Family History Mother Family history of osteoarthritis Social History Social History Smoking packs per day: 0.50 Smoking cigarettes per day: 10.0 Smoking status: Current some day smoker Tobacco type: cigarettes Additional smoking assessment comments: 0.5 PPD x 50 years Alcohol intake: current Alcohol use details: 1-2 drinks/day Substance use: never Substance use type: does not use Do You Feel Safe in your Home?: Yes Lack of Transportation: No Lack of Food: Never True Current Housing: I Have Housing Concerned About Future Housing: No Difficulty Paying Gas/Electric Bills: No Difficulty Paying for Meds: No Currently Unemployed: No Education: Decline to Answer Difficulty w/ Childcare or Family Care: No Living arrangements: with family Spiritual care concerns: No Comments At time of signature, agree with nursing past medical, surgical, social and family history. There is no relevant family history pertinent to the presenting complaint Exam Narrative: GENERAL: Well-appearing, well-nourished, and in no acute distress. HEAD: Normocephalic EYES: PERRLA, conjunctivae clear ENT: Nares clear, turbinates edematous and erythematous, clear discharge. Mucous membranes moist. TM pearly mallory with dull light reflex bilaterally; no tragal tenderness. Oropharynx erythematous without lesions. Tonsils not enlarged and without exudate, no drooling, no hoarseness, no trismus, uvula midline.post nasal drainage. NECK: Supple. No lymphadenopathy CHEST: Clear to auscultation, breath sounds equal. No wheezing, rhonchi, rales, or stridor. No respiratory distress, speaks in full sentences.cough noted SAO2 100% on room air HEART: Regular rate and rhythm. No murmur heard. SKIN: Warm, dry, no rash. NEURO: Alert and oriented x3. PSYCH: Normal mood and affect Course Course Emergency Course: Patient is aware of diagnosis, understands and agrees to treatment plan.? Anticipatory guidance given.? Patient agrees to follow-up as directed and is aware of reasons to seek care at the emergency department. Portions of this record may have been created with voice recognition software Level of Care: Express Care Visit Vital Signs Vital signs: Vital Signs Temperature 36.6 C 03/25/24 09:31 Pulse Rate 76 03/25/24 09:31 Respiratory Rate 16 03/25/24 09:31 Blood Pressure 143/83 H 03/25/24 09:31 Pulse Oximetry 100 03/25/24 09:31 Temperature 36.6 C 03/25/24 09:31 Pulse Rate 76 03/25/24 09:31 Respiratory Rate 16 03/25/24 09:31 Blood Pressure 143/83 H 03/25/24 09:31 Pulse Oximetry 100 03/25/24 09:31 Reviewed MDM - URI/Sore Throat MDM Narrative Medical decision making narrative: Differential diagnosis considered: Lai virus, strep pharyngitis, allergic rhinitis, upper respiratory tract infection, sinusitis, rhinosinusitis, nasopharyngitis. viral pharyngitis, otitis media, otitis externa, pneumonia, bronchitis, viral cough syndrome, viral syndrome, and influenza.? Exam findings show no acute concerns or changes; patient is non-toxic appearing and is in no distress.? Patient is appropriate for outpatient treatment and follow-up. Differential Diagnosis Differential diagnosis: Likely upper respiratory infection, viral infection, influenza and other (COVID) Medical Records Attestation: I reviewed the patient's medical records. Lab Data Attestation: I reviewed the patient's lab results. Lab results narrative: COVID antigen positive Labs: Lab Results 03/25/24 Range/Units 09:36 POC SARS CoV-2 Ag Positive (Negative) Critical Care Time Critical Care Time Critical Care Time: No Discharge Plan Discharge Clinical Impression: COVID-19 Patient Disposition: Home, Self-Care Condition: Stable Instructions: How to Recover from COVID-19 at Home (ED) Additional Instructions: Increase fluids especially juices and water Vanh-vek-umrphxa cough and cold medicine of your choice for your symptoms Zyrtec Claritin or Rosalia daily recommend Delsym or Robitussin cough syrup heat to the face 20-30 minutes 4-6 times a day for pain Salt water gargles, throat lozenges or throat sprays as desired Tylenol or ibuprofen for any fever pain Must quarantine for 5 days from start of symptoms COVID-19 DISCHARGE The following recommendations have been made by the CDC and local Health Departments, regarding COVID-19: Those individuals with mild cases of COVID-19 can generally be discontinued from isolation, 5 days AFTER the onset of symptoms AND the resolution of fever for 24hrs (without the use of fever-reducing medications) Those individuals who were asymptomatic, and tested positive, are discontinued from isolation 10 days AFTER their first positive COVID-19 test Those individuals with SEVERE to CRITICAL illness or immunocompromised diseases may require up to 20 days of home isolation or hospitalization Majority of mild to moderate cases can be treated at home, without hospitalization or prescription medications You do not need a negative test result to return to work/school, assuming the above recommendations have been met and you are not symptomatic. At this time, return to work/school notes will not be provided. Guidelines from the local Health Department, CDC, and workplace are expected to be followed. All individuals in the household need to remained quarantined for up to 14 days if asymptomatic OR 10 days after the start of symptoms. Everyone in the home DOES NOT require testing, they are presumed positive and should quarantine as directed. Treating symptoms for mild to moderate cases may include: Tylenol, Flonase/nasal spray, OTC cold/flu medications recommended from your provider or any necessary prescription medications provided at your visit or from your PCP IF YOU TESTED NEGATIVE If you are symptomatic with reason to believe you have COVID-19, there is a high possibility your rapid test may not have detected the virus. Rapid testing is dependent on timing and viral load and may have a false-negative reading You should follow appropriate guidelines regarding quarantine, hand washing, mask wearing, and social distancing You may be sent for PCR testing as an outpatient to the [facility] testing site Common Adult Symptoms: Fever/chills Cough Shortness of breath Fatigue, muscle aches Headache Loss of taste/smell Sore throat, congestion, runny nose GI symptoms (nausea, vomiting, diarrhea) Common Pediatric Symptoms Cough Fever GI symptoms (diarrhea, upset stomach, nausea, vomiting) Symptoms may differ in severity however, most cases do not require hospitalization. WHEN TO SEEK ER EVALUATION/TREATMENT Severe/persistent shortness of breath or difficulty breathing Elevated, persistent fevers without resolution with fever-reducing medications Chest pain Extreme fatigue/lethargy Complications of pre-existing disease Patient Language: Kinyarwanda Prescriptions: No Action Xtandi 40 mg capsule 160 mg PO DAILY naproxen 500 mg tablet 500 mg PO BID PRN (Reason: pain) Qty: 30 2RF Follow-up/Referrals: Michael Lilly MD [Primary Care Provider] - Time of Disposition: 10:11 Quality Sunitha Coma Scale Eyes: Open Verbal: Oriented and Alert Motor: Follows Commands [place] Coma Total Score: 15
== END 2024-03-25 10:20 | disposition home or self-care (01) ==
PROVIDERS: Emergency Provider Registered Nurse; PCP Family Medicine
DX: U07.1 COVID-19 (principal); Z85.46 Personal history of malignant neoplasm of prostate; F17.210 Nicotine dependence, cigarettes, uncomplicated
CPT/HCPCS: 87426; 99212; G0463

== ENCOUNTER 2024-06-03 11:12 | Outpatient (CLI) | payer MEDICARE, SELFPAY ==
[2024-06-03 14:29] LABS: Prostate Specific Antigen < 0.1 ng/mL (< OR = 4.0)
== END 2024-06-03 11:13 | disposition home or self-care (01) ==
LOC: ANHGOSHLAB 11:13
PROVIDERS: PCP Family Medicine
DX: C61 Malignant neoplasm of prostate (principal)
CPT/HCPCS: 36415; 84153; 84403

== ENCOUNTER 2024-08-28 09:44 | Outpatient (CLI) | payer MEDICARE, SELFPAY ==
[2024-08-29 11:08] LABS: PSA, Free <0.02 ng/mL
== END 2024-08-28 09:45 | disposition home or self-care (01) ==
LOC: ANHGOSHLAB 09:45
PROVIDERS: PCP Family Medicine; Visit Provider Urology
DX: C61 Malignant neoplasm of prostate (principal); Z12.5 Encounter for screening for malignant neoplasm of prostate
CPT/HCPCS: 84153; 84154; G0103

== ENCOUNTER 2024-11-19 13:00 | Outpatient (CLI) | payer MEDICARE, SELFPAY ==
--- OUTSIDE RECORDS SUMMARY | 2024-11-19 13:51 | XMS_ITS | Clinical Summary ---
Author Organization [facility] Address [address] [place] [id number] Care Team Providers Care Roller Mechanic Name Role Phone Michael Lilly MD Primary Care Provider [phone]- [phone] Encounters Date Type Department Care Team Description 11/06/2024 8:07 AM CDT - 11/06/2024 11:59 PM CDT Hospital Encounter [facility] [address] [place] [address] Joi Campbell, INTERNAL COMMUNICATIONS MANAGER Discharge Disposition: Home or Self Care (Routine Discharge) 11/06/2024 Travel from Last 3 Months Social History Tobacco Use Types Packs/Day Years Used Date Smoking Tobacco: Never Assessed Sex and Gender Information Value Date Recorded Sex Assigned at Male 11/06/2024 8:02 AM CDT Legal Sex Unknown 10/30/2024 8:28 AM CDT Gender Identity Not on file Sexual Orientation Not on file Plan of Treatment Health Maintenance Due Date Last Done Comments Colorectal Cancer Screening Colonoscopy (10 Years) 1955 Hepatitis C 1973 Annual Medicare Wellness Visit 01/28/2020 COVID-19 Vaccine ( season) 2024 06/16/2023, 09/06/2021, 12/23/2020, Additional history exists Influenza Adult (#1) 2024 12/04/2019 RSV Immunization or 60+ Years (1 - 1-dose 75+ series) 2030 DTaP, Tdap and Td Vaccines (2 - Td or Tdap) 10/05/2031 10/04/2021 Zoster Vaccines Completed 10/14/2023, 0504/2023, 02/08/2015 Pneumococcal Vaccine: 50+ Years Completed 10/16/2024 Meningococcal B Vaccine Aged Out No l onger eligible based on patient's age to complete this topic Meningococcal Vaccine Aged Out No milind roshni eligible based on patient's age to complete this topic RSV Immunizations Under 20 Months Aged Out No longer eligible based on patient's age to complete this topic Procedures Procedure Name Priority Date/Time Associated Diagnosis Comments CT LUNG SCREENING Routine 11/06/2024 8:2 3 AM CDT Tobacco use from Last 3 Months Results * CT LUNG SCREENING (11/06/2024 8:23 AM CDT) Anatomical Region Laterality Modality Chest Computed Tomogra phy 11/13/2024 4:22 PM CDT Impressions 11/13/2024 4:24 PM CDT IMPRESSION: 1. LUNG-RADS category 1: Negative 2. LUNG-RADS category S: Negative 3. Other incidental findings as above. RECOMMENDATIONS: Follow-up LDCT Chest October 2025. Referred By: JOI CAMPBELL Interpreted By: Kirby Lara MD, 11/13/2024 4:22 PM Narrative 11/13/2024 4:24 PM CDT [address] [address] Examination: CT LUNG SCREENING Exam time: 11/06/2024 8:12 AM HISTORY: Asymptomatic patient meeting NCCN high-risk criteria for lung screening. Smoking history. Pack years: smoker off and on for 30yrs. .5ppd pt states social smoker. denies any issues. COMPARISON: 12/13/2023 TECHNIQUE: Noncontrast, helical, low-dose CT (LDCT) chest per standard departmental protocol. Automated exposure control was utilized for dose reduction. FINDINGS: Lung Screening Specific (LUNG-RADS): Old granulomata. Potentially Significant Incidentals (LUNG-RADS category S): None. Pulmonary Incidentals: COPD. Mild scarring. 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 Coronary artery calcifications. Aortic calcifications. 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 3 cm diameter descending aorta. Renal cyst. Hiatal hernia. Procedure Note Kirby Lara MD - 11/13/2024 [id number] [place] [address] Examination: CT LUNG SCREENING Exam time: 11/06/2024 8:12 AM HISTORY: Asymptomatic patient meeting NCCN high-risk criteria for lungscreening. Smoking history. Pack years: smoker off and on for 30yrs. .5ppd pt states social smoker. denies any issues. COMPARISON: 12/13/2023 TECHNIQUE: Noncontrast, helical, low-dose CT (LDCT) chest per standarddepartmental protocol. Automated exposure control was utilized for dosereduction. FINDINGS: Lung Screening Specific (LUNG-RADS): Old granulomata. Potentially Significant Incidentals (LUNG-RADS category S): None. Pulmonary Incidentals: COPD. Mild scarring. 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 Coronary artery calcifications. Aortic calcifications. Mild aneurysmal ascending aorta, 4.2 cm diameter.3 cm diameter descending aorta. Renal cyst. Hiatal hernia. IMPRESSION: 1. LUNG-RADS category 1: Negative 2. LUNG-RADS category S: Negative 3. Other incidental findings as above. RECOMMENDATIONS: Follow-up LDCT Chest October 2025. Referred By: JOI CAMPBELL Interpreted By: Kirby Lara MD, 11/13/2024 4:22 PM Joi Campbell INTERNAL COMMUNICATIONS MANAGER CT Final Resu lt from Last 3 Months Insurance [employer] MEDICARE Care Teams Roller Mechanic Relationship Specialty Start Date End Date Michael Lilly MD [id number] [facility] [address] [address] PCP - General FAMILY PRACTICE 11/06/24
[2024-11-19 19:38] LABS: Prostate Specific Antigen < 0.1 ng/mL (< OR = 4.0)
== END 2024-11-19 13:01 | disposition home or self-care (01) ==
LOC: ANHGOSHLAB 13:01
PROVIDERS: PCP Nurse Practitioner Family; Visit Provider Urology
DX: C61 Malignant neoplasm of prostate (principal)
CPT/HCPCS: 36415; 84153

== ENCOUNTER 2024-11-20 08:32 | Outpatient (CLI) | payer MEDICARE, SELFPAY ==
--- NOTE | ~2024-11-20 | DEXA_ITS ---
Bone Density Report Name: MONICA CORTES Age: 69 Sex: Male Ethnicity: White Date of : 1955 Indication: parental hip fracture; height loss; prior fracture; cancer; Referring Provider: CHAVEZ KIM Study: Bone densitometry was performed. Exam Date: November 20, 2024 Accession number: [id number] Bone Density: Region BMD T-score Z-score Classification AP Spine(L1, L2, L3) 1.277 1.9 2.7 Normal Femoral Neck (Left) 0.792 -1.0 0.2 Normal Total Hip (Left) 1.158 0.8 1.5 Normal Femoral Neck (Right) 0.858 -0.5 0.6 Normal Total Hip (Right) 1.093 0.4 1.1 Normal Total Hip Mean 1.125 0.6 1.3 Normal World Health Organization criteria for BMD impression classify patients as: Normal (T-score at or above -1.0), Osteopenia (T-score between -1.0 and -2.5), or Osteoporosis (T-score at or below -2.5). 10-year Fracture Risk: FRAX not reported because: All T-scores for Spine Total, Hip Total, Femoral Neck at or above -1.0 Previous Exams: Region Exam Age BMD T-score BMD Change BMD Change Date g/cm2 vs Baseline vs Previous AP Spine (L1-L3) 11/20/2024 69 1.277 1.9 -0.053 (-4.0%) -0.053 (-4.0%) 11/18/2022 67 1.329 2.4 Total Hip(Left) 11/20/2024 69 1.158 0.8 -0.010 (-0.9%) -0.010 (-0.9%) 11/18/2022 67 1.168 0.9 Total Hip(Right) 11/20/2024 69 1.093 0.4 -0.035 (-3.1%) -0.035 (-3.1%) 11/18/2022 67 1.128 0.6 *Denotes significance at 95% confidence level, LSC for AP Spine = 0.022 g/cm2, LSC for Total Hip = 0.027 g/cm2 Clinical Information Provided by Patient: Has had a low trauma fracture Parent has had a hip fracture Smokes Has 3 or more alcoholic drinks per day Has used the following medications: Vitamin D, Calcium Has the following medical conditions: Cancer Patient maximum height was 76 No regular weight bearing exercise Drinks caffeinated beverages Impression: The patient has normal bone mass. The patient has risk factors, including: parental hip fracture, smoking, excessive alcohol use, previous fracture. The BMD for the AP Spine (L1-L3) decreased, changing by -4.0% since the last DXA exam. The BMD for the Total Hip(Right) decreased, changing by -3.1% since the last DXA exam. Discussion: BONE DENSITY IS ABOVE THE MINIMUM DESIRABLE LEVEL AT ALL SKELETAL SITES TESTED. This patient?s bone mineral density is above the minimum desirable level (T-score -1.0 or better) at all sites measured. The patient should follow a healthful lifestyle (good nutrition with adequate calcium and vitamin D, and appropriate weight-bearing exercise). Follow-Up: Consider repeating this study in 3 to 4 years to reassess this patient's status, or sooner if there is some new clinical indication. Reported by: EDU on 11/20/2024 9:21:00 AM. Reviewed, dictated and finalized at location A.
== END 2024-11-20 08:33 | disposition home or self-care (01) ==
PROVIDERS: PCP Nurse Practitioner Family; Visit Provider Urology
DX: M81.0 Age-related osteoporosis without current pathological fracture (principal)
CPT/HCPCS: 77080

== ENCOUNTER 2024-12-04 10:41 | Outpatient (CLI) | payer MEDICARE, SELFPAY ==
--- NOTE | ~2024-12-04 | XR_ITS ---
EXAMINATION: XR shoulder RT min 2V, 12/04/2024 10:46 CDT HISTORY: looking for degree of arthritis vs other concerns. COMPARISON: No comparisons available. Findings: No acute fracture or malalignment. Moderate degenerative changes Soft tissues unremarkable. Impression: No acute fracture or malalignment. Reviewed, dictated and finalized at location P. Impression: No acute fracture or malalignment.
== END 2024-12-04 10:42 | disposition home or self-care (01) ==
LOC: GOSHIMG 10:41
PROVIDERS: PCP Nurse Practitioner Family; Visit Provider Nurse Practitioner Family
DX: M25.511 Pain in right shoulder (principal)
CPT/HCPCS: 73030